=== PATIENT | female | born 1950 | race Caucasian/White ===

== ENCOUNTER → 2020-12-01 | Outpatient (CLI) | payer OTHER ==
[~2020-12-01] MED LIST: AZITHROMYCIN250 MG PO; DECADRON6 MG PO; FOLIC ACID 1 MG1 MG PO; GLUCOPHAGE500 MG PO; LISINOPRIL2.5 MG PO; METHOTREXATE T2.5 MG PO; MICROZIDE12.5 MG PO; NEURONTIN600 MG PO; PERCOCET 10-321 EACH PO; TENORMIN 25 MG25 MG PO
== END ==
LOC: KOH-I 16:46
DX: R06.02 Shortness of breath (principal); R09.02 Hypoxemia; M54.5 Low back pain; M47.816 Spondylosis without myelopathy or radiculopathy, lumbar region
CPT/HCPCS: 71046; 72110